=== PATIENT | male | born 1965 | race Caucasian/White ===

== ENCOUNTER 2020-02-29 23:06 | Inpatient (IN) | payer OTHER ==
--- NOTE | 2020-03-01 00:52 | PDOC.HHP ---
Hospitalist HPI - History of Present Illness abdominal pain History of Present Illness: Case of an 54y/o male with no pmhx who present to hospital due to abdominal pain. patient refers he was on his usual state of health until yesterday night when he started with intermittent abdominal pain. patient refers initially started on epigastric area but then radiated to R side. pains described as 7/10 intermittent colicky in nature worsen by movement. patient states he went to see some games todays and noted decreased apetite and the pain continued for which he went to ED for evaluation. patient there was diagnosed with cholecystitis by CT and US and was transfer to this institution for further evaluation and management. patient refer chills and nightsweats but denies any fever nausea vomiting or diarrhea. Hospitalist ROS - Review of Systems All other systems reviewed; all pertinent +/- noted in HPI/Subj Hospitalist History - Past Medical History Source: patient - Past Surgical History Other Surgical History: gastric sleeve 2y/a - Family History Family History: reports: cancer - Social History Smoking Status: Never smoker Alcohol: reports: Occassional Drugs: reports: none - Exam General Appearance: NAD, awake alert Eye: PERRL, anicteric sclera ENT: normocephalic atraumatic, no oropharyngeal lesions Neck: supple, symmetric, no JVD Heart: RRR, no murmur, no gallops Respiratory: CTAB, no wheezes, no rales Gastrointestinal: soft, non-distended, normal bowel sounds, tender to palpation Extremities: no cyanosis, no clubbing, no edema Skin: normal turgor, no lesions, no rashes Neurological: cranial nerve grossly intact, normal sensation to touch, no weakness Musculoskeletal: normal tone, normal strength, no muscle wasting Psychiatric: normal affect, normal behavior, A&O x 3, oriented to person Hospitalist Results - Labs Lab results: Lipase 2447 U/L (8-78) H 03/01/20 00:01 Hospitalist H&P A/P - Problem (1) Pancreatitis Code(s): K85.90 - ACUTE PANCREATITIS WITHOUT NECROSIS OR INFECTION, UNSP Status: Acute (2) Acute cholecystitis Code(s): K81.0 - ACUTE CHOLECYSTITIS Status: Acute - Plan Plan: 54y/o who present with pancreatitis and acute cholecystitis pancreatitis - elevated lipase in 2k - likely secondary to gallstone - aggresive ivfs - pain management - GI consulted - npo acute cholecystitis - ivfs - started on zosyn - gen surgeon consulted - ct / us consistent with cholecystitis
[2020-03-01] MEDS ORDERED: Calcium Carbonate 500 MG ChewTAB PO PRN (01:47)
[2020-03-01] MEDS ORDERED: Ondansetron PF 4 MG/2 ML Vial IVP PRN (01:47)
[2020-03-01] MEDS ORDERED: HYDROcodone/Acetaminophen 5/325 mg Tablet PO PRN (01:47)
[2020-03-01] MEDS ORDERED: Ondansetron ODT 4 MG TAB PO PRN (01:47)
[2020-03-01] MEDS ORDERED: Acetaminophen 325 MG TAB PO PRN (01:47)
[2020-03-01] MEDS ORDERED: Morphine 2 MG/ML SYRINGE SLOW IVP PRN (01:47)
[2020-03-01] MEDS ORDERED: Sodium Chloride 0.9% 1,000 ML IV SCH ×3 (02:30→08:45)
[2020-03-01] MEDS ORDERED: Piperacillin/Tazobactam 4.5 GM VIAL ONE (02:36)
[2020-03-01] MEDS ORDERED: Sodium Chloride 0.9% 100 ML ONE (02:37)
[2020-03-01] MEDS: Piperacillin/Tazobactam 4.5 GM in Sodium Chloride 0.9% 100 ML IVPB SCH ×4 (02:55→20:42)
[2020-03-01 04:37] VITALS: BMI 24.8
[2020-03-01 05:40] LABS: Band 38 % (5-11); Hemoglobin 12.5 g/dL (14.0-18.0); Lymphocytes 4 % (21-51); MDiff Complete? YES; Mean Corpuscular HGB CONC 33.4 g/dL (32.0-36.0); Mean Corpuscular Hemoglobin 28.1 pg (27.0-31.0); Mean Platelet Volume 8.4 fL (7.4-10.4); Monocytes 7 % (0-10); Neutrophil 51 % (42-75); Platelet Count 122 thou/uL (130-400); RBC Distribution Width 11.9 % (11.5-14.5); Red Blood Cell (RBC) Count 4.47 mill/uL (4.70-6.10); White Blood Cell (WBC) Count 7.6 thou/uL (4.8-10.8)
[2020-03-01 05:47] LABS: ALT (SGPT) 119 U/L (8-55); AST (SGOT) 94 U/L (5-34); Alkaline Phosphatase 102 U/L (40-110); Anion Gap 13 mmol/L (10-20); BUN (Urea Nitrogen) 17 mg/dL (8.4-25.7); Bilirubin, Total 4.3 mg/dL (0.2-1.2); Calc. Creatinine Clearance 118 mL/min (70-130); Calcium 7.8 mg/dL (7.8-10.44); Carbon Dioxide 19 mmol/L (22-29); Chloride 111 mmol/L (98-107); Estimated GFR-MDRD Greater than 90; Globulin 1.9 g/dL (2.4-3.5); Glucose 63 mg/dL (70-105); Potassium 3.5 mmol/L (3.5-5.1); Protein, Total 4.9 g/dL (6.0-8.3); Sodium 139 mmol/L (136-145)
[2020-03-01 07:37] LABS: Magnesium 1.6 mg/dL (1.6-2.6); Phosphorus 2.2 mg/dL (2.3-4.7)
[2020-03-01] MEDS ORDERED: Fentanyl 100 MCG/2 ML VIAL ONE (07:48)
[2020-03-01] MEDS: D5 1/2 NS w/20 mEq KCL 1,000 ML IV SCH ×3 (08:37→20:41)
[2020-03-01] MEDS ORDERED: Iothalamate Meglumine 60% 50 ML VIAL FS ONE (08:39)
[2020-03-01] MEDS ORDERED: Potassium Phosphate 15 MMOL in Sodium Chloride 0.9% 250 ML 250 ML IVPB SCH (08:45)
[2020-03-01] MEDS ORDERED: Ondansetron HCl/PF 4 MG/2 ML Vial IVP PRN (08:51)
[2020-03-01] MEDS ORDERED: Promethazine HCl 25 MG/ML VIAL SLOW IVP PRN (08:51)
[2020-03-01] MEDS ORDERED: Promethazine HCl 25 MG/ML VIAL IM PRN (08:51)
[2020-03-01] MEDS ORDERED: Enoxaparin Sodium 40 MG/0.4 ML SYRINGE SC SCH (09:00)
[2020-03-01] MEDS ORDERED: FLU VACC QS2020-21(6MOS UP)/PF 60 MCG/0.5 ML SYRINGE IM ONE (09:00)
[2020-03-01] MEDS ORDERED: Indomethacin 50 MG SUPP ONE (09:05)
--- NOTE | 2020-03-01 09:14 | CON ---
DATE OF CONSULTATION: 03/01/2020 CHIEF COMPLAINT: Choledocholithiasis. HISTORY OF PRESENT ILLNESS: This is a 54-year-old male who is 2 years status post gastric sleeve who has lost over 100 pounds successfully, who presents with upper abdominal pain. He is in town from [place] for the football game. Seen in emergency department, was found to have hyperbilirubinemia and gallstones, transferred to [facility] for higher level of care. Pain was 3/10 now in the upper mid abdomen. No prior known history of gallstones, jaundice, or pancreatitis. PAST MEDICAL HISTORY: He denies. PAST SURGICAL HISTORY: Gastric sleeve. MEDICATIONS: Taken daily, none. ALLERGIES: NO KNOWN DRUG ALLERGIES. SOCIAL HISTORY: Occasional alcohol. No smoking or other drugs. REVIEW OF SYSTEMS: 10-system review of systems is otherwise negative unless described above. PHYSICAL EXAMINATION: VITAL SIGNS: Blood pressure is 96/64, pulse 91, respirations 18, temperature 97.8. CHEST: Clear. HEART: Regular rate. ABDOMEN: Soft, tender in the upper abdomen. LABORATORY DATA: White blood cell count is 7, hemoglobin 12. Sodium 139, potassium 3.5, creatinine 0.84, bilirubin 4.3, lipase 2447. Ultrasound at outside institution showed gallstones. ASSESSMENT: Cholecystitis, choledocholithiasis. PLAN: ERCP today by Dr. England. Then, plan laparoscopic cholecystectomy tomorrow. Job ID: [id number]
--- NOTE | 2020-03-01 09:32 | CON ---
DATE OF CONSULTATION: 03/01/2020 REASON FOR CONSULTATION: Pancreatitis, elevated LFTs concerning for choledocholithiasis. CONSULTING PROVIDER: Hayes Markham MD HISTORY OF PRESENT ILLNESS: The patient is a 54-year-old male with past medical history of morbid obesity status post gastric sleeve surgery, presenting with complaints of right upper quadrant abdominal pain. He states that he was in his usual state of health until approximately two nights ago when he began having increased right upper quadrant abdominal discomfort that he characterized as a dull/aching type sensation, would radiate to the midepigastric region and later the generalized abdomen, was constant and reached a severity of 3/10. Over the course of the next 24 hours, this pain continued to progressively/slightly increase and was associated with increased mid back pain between his shoulder blades, diaphoresis, subjective chills, anorexia, and dizziness. This pain was worse with increased movements and having a bowel movement, but he denied any clear alleviating factors. He did have approximately one bowel movement over the next 24 hours that was semi-solid in consistency (Benedict 5) with no difficulty with defecation. With continuation of his symptoms, it prompted him to seek healthcare assistance at the [facility] ER, where he underwent routine labs and a CT scan consistent with cholecystitis. The labs also consistent with choledocholithiasis and acute pancreatitis. He was subsequently admitted to the hospital for further evaluation. Today, he states that he is feeling somewhat better, although he does continue to have the right upper quadrant/midepigastric abdominal pain. Otherwise, he denies any nausea, vomiting, fevers, hematemesis, melena, hematochezia, dysphagia, odynophagia, constipation, or recent weight loss. REVIEW OF SYSTEMS: A 10-category review of systems was obtained with all responses negative except for the pertinent positives as listed in HPI. PAST MEDICAL HISTORY: Morbid obesity. PAST SURGICAL HISTORY: Sleeve gastrectomy in 2018. FAMILY HISTORY: Denies any GI malignancies. SOCIAL HISTORY: Denies any tobacco or illicit drug use. Drinks approximately 2 to 3 beers every 1 to 2 weeks. OUTPATIENT MEDICATIONS: None. ALLERGIES: NO KNOWN DRUG ALLERGIES. PHYSICAL EXAMINATION: VITAL SIGNS: Temperature 97.8, pulse 91, blood pressure 96/64, respiratory rate 18, and saturating 99% on room air. GENERAL: The patient is lying in bed, in no acute distress. Alert and oriented x4. HEENT: Normocephalic and atraumatic. Positive scleral icterus. NECK: Supple. No JVD. CARDIOVASCULAR: Increased heart rate, but not necessarily tachycardic with regular rate and rhythm. No murmurs, gallops, or rubs. RESPIRATORY: Clear to auscultation bilaterally with no discernible wheezes or rales. ABDOMEN: Normoactive bowel sounds. Soft and nondistended. Tenderness to palpation in the midepigastric and right upper quadrant. EXTREMITIES: No cyanosis, clubbing, or edema. LABORATORY DATA: CBC with a white blood cell count of 7.6, hemoglobin 12.5, hematocrit 37.5, and platelets 122. Chemistry with a sodium of 139, potassium 3.5, chloride 111, CO2 of 19, BUN 17, creatinine 0.84, glucose 63, AST 94, ALT 119, alkaline phosphatase 102, and total bilirubin 4.3, albumin 3.0, and lipase 2447. IMAGING DATA: The patient had both a CT scan and ultrasound at an outside institution prior to transfer with records not available for review at this time. However, per review of the patient's chart, there was mention that he had a CT and ultrasound that were consistent with cholecystitis. ASSESSMENT AND PLAN: The patient is a 54-year-old male with a history of morbid obesity status post sleeve gastrectomy, presenting with right upper quadrant abdominal pain and labs consistent with cholelithiasis/cholecystitis and choledocholithiasis with gallstone pancreatitis. Choledocholithiasis/gallstone pancreatitis. The patient is presenting with acute onset of right upper quadrant abdominal pain characterized as a dull/aching type sensation radiating to the midepigastric region and later the generalized abdomen and reaching a severity of 3/10. On evaluation of the patient at an outside institution, he had both a CT scan and ultrasound that were consistent with cholecystitis. However, upon review of the patient's LFTs and lipase, they are strongly concerning for the presence of choledocholithiasis and resultant gallstone pancreatitis. At this point with his rapid weight loss over the last few years secondary to sleeve gastrectomy. This could potentially have precipitated the formation of gallstones resulting in the current clinical situation. Recommendations; 1. Would continue to trend the patient's LFTs for signs of resolving and/or worsening inflammation. 2. Would keep the patient n.p.o. for now in anticipation of endoscopic retrograde cholangiopancreatography later on this morning. 3. Would plan for endoscopic retrograde cholangiopancreatography later today for accessing the biliary system and removal of possible choledocholithiasis. 4. Would place the patient on Zosyn as part of infection prophylaxis for possible cholangitis, given his low systolic blood pressure (although the patient states that is normally low). 5. The patient will ultimately need a cholecystectomy. The timing of that procedure, I would defer to General Surgery Service. We will continue to follow. Please call with any questions. Job ID: [id number]
[2020-03-01] MEDS ORDERED: PHENYLEPHRINE-NS 100 MCG/ML 10 ML SYRINGE ONE (09:34)
[2020-03-01] MEDS ORDERED: Lidocaine 1% PF 5 ML VIAL ONE (09:34)
[2020-03-01] MEDS ORDERED: Glycopyrrolate 0.2 MG/ML 5 ML SYRINGE ONE (09:34)
[2020-03-01] MEDS ORDERED: Ondansetron PF 4 MG/2 ML Vial ONE (09:34)
[2020-03-01] MEDS ORDERED: PROPOFOL 200 MG/20 ML VIAL ONE (09:34)
[2020-03-01] MEDS ORDERED: Rocuronium Bromide 10 MG/ML (10ML VIAL) ONE (09:34)
[2020-03-01] MEDS ORDERED: Acetaminophen 325 MG TAB ONE ×2 (10:23→10:24)
--- NOTE | 2020-03-01 10:26 | OP ---
DATE OF PROCEDURE: 03/01/2020 PROCEDURE PERFORMED: Endoscopic retrograde cholangiopancreatography with sphincterotomy. INDICATIONS FOR PROCEDURE: Elevated LFTs with possible choledocholithiasis, gallstone pancreatitis. DESCRIPTION OF PROCEDURE: After the risks and benefits of the procedure were explained to the patient including risks of bleeding, infection, perforation, reactions to anesthesia, aspiration, post-ERCP pancreatitis, and/or pain, informed consent was obtained. The patient was then taken to the endoscopy suite where general anesthesia was administered followed by endotracheal tube intubation. Once the patient was adequately sedated and intubated, he was maneuvered into the prone position on the endoscopy table in preparation of the ERCP. Once in adequate position, the standard duodenoscope was introduced into the mouth with intubation of the esophagus, stomach, and the proximal small intestines with the findings listed below. The patient tolerated the procedure well with no immediate perioperative complications. Upon conclusion of the procedure, all equipment was removed from the patient and he was transferred to PACU in satisfactory condition. FINDINGS: EGD findings: Limited views were obtained from the EGD portion of this examination given the side-viewing nature of the standard duodenoscope. Of the mucosa seen; normal-appearing mucosa was seen in the proximal, mid, and distal esophagus. Surgical change consistent with a sleeve gastrectomy was noted upon entry into the stomach; however, normal-appearing mucosa was seen in the gastric cardia, fundus, incisura, antrum, and body. However, a 2- to 3-mm clean-based superficial ulceration was seen in the gastric antrum without any high-risk stigmata of active or recent bleeding. Normal-appearing mucosa was then seen in both the duodenal bulb and second portion of the duodenum. There was no evidence of erosions, mass lesions, or active/recent bleeding seen during this portion of the exam. ERCP findings: The ampulla was successfully identified within the second portion of the duodenum and was normal in appearance. A medium to large sized diverticulum was seen immediately adjacent to the ampulla, but did not impede successful cannulation. Using a 5-mm Ultratome sphincterotome, the ampulla was then successfully cannulated with a 5-mm Jagwire placed into the common bile duct and advanced into the intrahepatic biliary tree. Once the guidewire was in adequate position, the sphincterotome was advanced into the common bile duct with the cholangiogram performed at that time. Initially, the common bile duct measured approximately 3 mm in diameter with no apparent filling defect on initial examination. However, upon further fluoroscopy, a small filling defect versus an air bubble was seen moving along the length of the common bile duct, concerning for choledocholithiasis. Given this finding, the sphincterotome was then exchanged for a biliary balloon over the guidewire using exchange technique. Once the exchange was completed, a 9-mm biliary balloon was advanced into the common bile duct with successive balloon sweeps performed. With these successive balloon sweeps, no stone material or overt stones were extracted from either the common hepatic or common bile duct. After multiple negative sweeps, an occlusion cholangiogram was performed showing good filling of the intrahepatic biliary tree, good filling of the gallbladder along the cystic duct, as well as good filling of the common bile duct in the distal extrahepatic biliary tree with no evidence of filling defects or air bubbles. With removal of the guidewire and the biliary balloon, good drainage of contrast and bile was then seen coming from the common bile duct with repeat fluoroscopy showing good drainage of the intrahepatic biliary tree. All equipment was then removed from the patient. The procedure terminated. IMPRESSION: 1. Surgical change consistent with gastric sleeve gastrectomy. 2. A 2- to 3-mm superficial ulcerations seen in the gastric antrum, likely a sequelae of acute pancreatitis. 3. Common bile duct measuring 3 mm in size with sphincterotomy and balloon sweeps, yielding no stone debris or stones. 4. Good filling of the gallbladder along the cystic duct, making a Mirizzi syndrome much less likely. RECOMMENDATIONS: 1. Would continue to trend the patient's LFTs daily for signs of improvement of transaminitis. 2. Monitor for clinical evidence of post ERCP pancreatitis. 3. Given evidence of cholecystitis and probable gallstone pancreatitis, the patient will ultimately need a cholecystectomy in the near future, but would defer timing to General Surgery Service. 4. Would increase the patient's IV fluids to 200 mL/h for the next 8 hours and then decrease to 150 mL over the next 16 hours. 5. Would advance the patient's diet to clear liquid diet tomorrow unless he is being taken for cholecystectomy. 6. Pain control per primary team. We will continue to follow. Please call with any questions. Job ID: [id number]
--- NOTE | 2020-03-01 11:02 | RAD ---
ERCP 3 views: 03/01/2020 HISTORY: 54-year-old male with right upper quadrant abdominal pain COMPARISON: No prior imaging studies of any modality of any body part is currently available on synapse PACS. FINDINGS: Catheterization and wire placement ascending common bile duct, common hepatic duct, with wire tip tavo p superiorly in a branch of right hepatic duct. Contrast material in nondilated common duct and what appears to be nondilated gallbladder fundus. Evaluation for filling defects is limited because the contrast material is faint. No convincing evidence of filling defect identified. Mild irregularity and mild ectasia of left hepatic duct, but not of its branches. Final images demonstrate small amount of contrast material in the duodenum adjacent to ampulla. IMPRESSION: No biliary obstruction.
[2020-03-01 12:57] LABS: INR-International Normal Ratio 1.5; Prothrombin Time 18.7 sec (12.0-14.7)
[2020-03-01] MEDS ORDERED: Dextrose 50% Abboject 50 ML SYRINGE IVP PRN (13:45)
[2020-03-01] MEDS ORDERED: Dextrose 5% in Water 1,000 ML IV PRN (13:45)
[2020-03-01 15:40] LABS: #Eosinphils 0.1 thou/uL (0.0-0.7); #Lymphocytes 0.5 thou/uL (1.20-3.40); #Monocytes 0.5 thou/uL (0.11-0.59); #Neutrophils 6.2 thou/uL (1.40-6.50); %Eosinophils 0.8 % (0.0-10.0); %Lymphocytes 6.4 % (21.0-51.0); %Monocytes 6.9 % (0.0-10.0); %Neutrophils 85.9 % (42.0-75.0); Hemoglobin 12.4 g/dL (14.0-18.0); Mean Corpuscular HGB CONC 32.9 g/dL (32.0-36.0); Mean Platelet Volume 8.2 fL (7.4-10.4); Platelet Count 94 thou/uL (130-400); RBC Distribution Width 12.1 % (11.5-14.5); Red Blood Cell (RBC) Count 4.44 mill/uL (4.70-6.10); White Blood Cell (WBC) Count 7.2 thou/uL (4.8-10.8)
[2020-03-01 15:56] LABS: ALT (SGPT) 96 U/L (8-55); AST (SGOT) 69 U/L (5-34); Alkaline Phosphatase 105 U/L (40-110); Anion Gap 10 mmol/L (10-20); BUN (Urea Nitrogen) 16 mg/dL (8.4-25.7); Bilirubin, Total 3.9 mg/dL (0.2-1.2); Calc. Creatinine Clearance 113 mL/min (70-130); Calcium 7.8 mg/dL (7.8-10.44); Carbon Dioxide 20 mmol/L (22-29); Chloride 113 mmol/L (98-107); Estimated GFR-MDRD 90; Globulin 1.9 g/dL (2.4-3.5); Glucose 80 mg/dL (70-105); Potassium 3.7 mmol/L (3.5-5.1); Protein, Total 4.9 g/dL (6.0-8.3); Sodium 139 mmol/L (136-145)
[2020-03-01] MEDS ORDERED: Morphine 2 MG/ML VIAL SLOW IVP PRN (20:50)
[2020-03-02] MEDS: Piperacillin/Tazobactam 4.5 GM in Sodium Chloride 0.9% 100 ML IVPB SCH ×2 (04:00→09:11)
[2020-03-02] MEDS: D5 1/2 NS w/20 mEq KCL 1,000 ML IV SCH ×2 (04:13→09:23)
[2020-03-02 05:23] LABS: INR-International Normal Ratio 1.2; Prothrombin Time 15.8 sec (12.0-14.7)
[2020-03-02 05:24] LABS: #Eosinphils 0.1 thou/uL (0.0-0.7); #Lymphocytes 0.5 thou/uL (1.20-3.40); #Monocytes 0.3 thou/uL (0.11-0.59); #Neutrophils 3.5 thou/uL (1.40-6.50); %Eosinophils 2.8 % (0.0-10.0); %Lymphocytes 11.4 % (21.0-51.0); %Monocytes 6.5 % (0.0-10.0); %Neutrophils 79.3 % (42.0-75.0); Mean Corpuscular HGB CONC 33.3 g/dL (32.0-36.0); Mean Corpuscular Hemoglobin 28.4 pg (27.0-31.0); Mean Corpuscular Volume 85.3 fL (78.0-98.0); Mean Platelet Volume 8.5 fL (7.4-10.4); PTT 34.9 sec (22.9-36.1); Platelet Count 93 thou/uL (130-400); RBC Distribution Width 12.1 % (11.5-14.5); Red Blood Cell (RBC) Count 4.23 mill/uL (4.70-6.10); White Blood Cell (WBC) Count 4.4 thou/uL (4.8-10.8)
[2020-03-02 05:44] LABS: Anion Gap 10 mmol/L (10-20); BUN (Urea Nitrogen) 13 mg/dL (8.4-25.7); Calc. Creatinine Clearance 126 mL/min (70-130); Carbon Dioxide 21 mmol/L (22-29); Chloride 110 mmol/L (98-107); Estimated GFR-MDRD Greater than 90; Glucose 81 mg/dL (70-105); Lipase 880 U/L (8-78); Magnesium 1.8 mg/dL (1.6-2.6); Phosphorus 2.3 mg/dL (2.3-4.7); Potassium 3.9 mmol/L (3.5-5.1); Sodium 137 mmol/L (136-145)
[2020-03-02 05:45] LABS: ALT (SGPT) 79 U/L (8-55); AST (SGOT) 50 U/L (5-34); Albumin 2.8 g/dL (3.5-5.0); Alkaline Phosphatase 99 U/L (40-110); Bilirubin, Direct 2.7 mg/dL (0.1-0.3); Bilirubin, Total 3.2 mg/dL (0.2-1.2); Protein, Total 4.6 g/dL (6.0-8.3)
[2020-03-02 07:41] LABS: SARS-CoV-2 NAA Rapid Test Not Detected (NotDetected)
[2020-03-02] MEDS ORDERED: Fentanyl 100 MCG/2 ML VIAL ONE (08:40)
[2020-03-02] MEDS ORDERED: Saccharomyces boulardii 250 MG CAP PO SCH (09:00)
[2020-03-02] MEDS ORDERED: Bupivacaine 0.25% HCL 30 ML VIAL ONE (09:12)
[2020-03-02] MEDS ORDERED: Lidocaine 1% w/Epinephrine 1:100K 20 ML VIAL ONE (09:12)
[2020-03-02] MEDS ORDERED: Bupivacaine/Epinephrine 0.25% 30 ML VIAL ONE (09:27)
[2020-03-02] MEDS ORDERED: Promethazine HCl 25 MG/ML VIAL IM PRN ×2 (11:02→12:16)
[2020-03-02] MEDS ORDERED: Promethazine HCl 25 MG/ML VIAL SLOW IVP PRN (11:02)
[2020-03-02] MEDS ORDERED: Ondansetron HCl/PF 4 MG/2 ML Vial IVP PRN (11:02)
[2020-03-02] MEDS ORDERED: HYDROmorphone 2 MG/ML VIAL SLOW IVP PRN (11:02)
[2020-03-02] MEDS ORDERED: PACU-Morphine 4MG/ML VIAL SLOW IVP PRN (11:02)
[2020-03-02] MEDS ORDERED: Ondansetron PF 4 MG/2 ML Vial ONE ×2 (11:24→12:06)
[2020-03-02] MEDS ORDERED: Rocuronium Bromide 10 MG/ML (10ML VIAL) ONE (12:06)
[2020-03-02] MEDS ORDERED: Dexamethasone 20 MG/5 ML VIAL ONE (12:06)
[2020-03-02] MEDS ORDERED: Glycopyrrolate 0.2 MG/ML 5 ML SYRINGE ONE (12:06)
[2020-03-02] MEDS ORDERED: Ketorolac Tromethamine 30 MG/ML VIAL ONE (12:06)
[2020-03-02] MEDS ORDERED: Lidocaine 1% PF 5 ML VIAL ONE (12:06)
[2020-03-02] MEDS ORDERED: EPHEDRINE 25 MG/5 ML SYRINGE ONE (12:06)
[2020-03-02] MEDS ORDERED: PROPOFOL 200 MG/20 ML VIAL ONE (12:06)
[2020-03-02] MEDS ORDERED: Mag-Al 1200 mg/1200 mg/30 ML UDCUP PO PRN (12:16)
[2020-03-02] MEDS ORDERED: Dextrose 5% in Water 1,000 ML IV PRN (12:16)
[2020-03-02] MEDS ORDERED: hydrALAZINE 20 MG/ML VIAL SLOW IVP PRN (12:16)
[2020-03-02] MEDS ORDERED: traMADol HCl 50 MG TAB PO PRN ×2 (12:16)
[2020-03-02] MEDS ORDERED: Morphine 2 MG/ML VIAL SLOW IVP PRN (12:16)
[2020-03-02] MEDS ORDERED: Dextrose 50% Abboject 50 ML SYRINGE SLOW IVP PRN (12:16)
[2020-03-02] MEDS ORDERED: Sodium Chloride 0.9% 1,000 ML IV SCH (12:16)
[2020-03-02] MEDS ORDERED: Morphine 4 MG/ML VIAL SLOW IVP PRN (12:16)
[2020-03-02] MEDS ORDERED: Calcium Carbonate 500 MG ChewTAB PO PRN (12:16)
[2020-03-02] MEDS ORDERED: Ondansetron PF 4 MG/2 ML Vial IVP PRN (12:16)
--- NOTE | 2020-03-02 12:51 | PRG ---
DATE OF SERVICE: 03/02/2020 REASON FOR CONSULTATION: Pancreatitis, elevated LFTs. SUBJECTIVE: Since the ERCP yesterday, the patient states that he had improvement in his abdominal pain with the severity reaching now 1/10. While he has not had a bowel movement since the procedure yesterday, he has had urinated quite a bit with IV fluid resuscitation. Otherwise, he denies any nausea, vomiting, fevers, chills, hematemesis, melena, or hematochezia. Currently, he is on the schedule for laparoscopic cholecystectomy today. OBJECTIVE: VITAL SIGNS: Temperature 98.4, pulse 64, blood pressure 99/64, respiratory rate 18, saturating 92% on room air. GENERAL: The patient was lying in bed, in no acute distress. Alert and oriented x4. CARDIOVASCULAR: Regular rate and rhythm. RESPIRATORY: Clear to auscultation bilaterally. ABDOMEN: Normoactive bowel sounds. Soft, nondistended. Mild tenderness to palpation in the right upper quadrant. EXTREMITIES: No cyanosis, clubbing, or edema. LABORATORY DATA: CBC with a white blood cell count of 4.4, hemoglobin 12, hematocrit 36, and platelets 93. INR 1.2. Chemistry with a sodium of 137, potassium 3.9, chloride 110, CO2 of 21, BUN 13, creatinine 0.79, glucose 81, AST 50, ALT 79, alkaline phosphatase 99, and total bilirubin 3.2. Lipase 880. IMAGING DATA: ERCP performed on March 01, 2020, yielded a common bile duct of approximately 3 mm in diameter with sphincterotomy and successive balloon sweeps. There was no foreign object or stone within the biliary tree. ASSESSMENT AND PLAN: The patient is a 54-year-old male with past medical history of morbid obesity, status post sleeve gastrectomy, presenting with right upper quadrant abdominal pain with labs concerning for choledocholithiasis, but with now negative EGD in addition to pancreatitis. 1. Pancreatitis: The patient initially presented with acute onset of right upper quadrant abdominal pain with lipase significantly elevated consistent with acute uncomplicated pancreatitis. With the elevation in his liver enzymes, there was some concern about gallstone pancreatitis, but ERCP performed on March 01, 2020, did not yield any stones within the common hepatic or common bile duct with a normal-appearing extrahepatic biliary tree. At this time, the origin of his pancreatitis is somewhat uncertain and could have been due to a passed stone within the biliary tree, but also could be due to increased recent alcohol use as an outpatient. RECOMMENDATIONS: 1. We would continue to trend the patient's LFTs for signs of resolving hepatic inflammation. 2. Agree with laparoscopic cholecystectomy today to minimize any further recurrences of possible choledocholithiasis. 3. Antibiotics and pain control per primary team. 4. We will continue the patient at 150 mL/h in terms of IV fluid, but we would decrease it appropriately when advancing the patient's diet. 5. After the laparoscopic cholecystectomy, if there are no complications, I would restart the patient on a clear liquid diet and advance as tolerated given his pancreatitis. We will continue to follow. Please call with any questions. Job ID: [id number]
[2020-03-02 15:03] VITALS: BP 117/77; TEMP 97
--- NOTE | 2020-03-02 15:33 | OP ---
DATE OF PROCEDURE: 03/02/2020 PREOPERATIVE DIAGNOSIS: Acute cholecystitis. POSTOPERATIVE DIAGNOSIS: Acute cholecystitis. PROCEDURE: Laparoscopic cholecystectomy. ANESTHESIA: General. ESTIMATED BLOOD LOSS: Minimal. COMPLICATIONS: None. SPECIMEN: Gallbladder. FINDINGS: Acute cholecystitis. PROCEDURE IN DETAIL: The patient was taken to the operating room and laid supine on the operating room table. After general anesthetic was obtained, the abdomen was prepped and draped in a sterile fashion. A curved incision was made below the umbilicus. Cautery was used to dissect down to the umbilical fascia. Umbilical fascia was incised and held up using a Stanislav. The abdominal cavity was entered using a Nery clamp. Holding stitch of Vicryl was placed on each side of the fascia. Campos trocar was placed. High-flow pneumoperitoneum was obtained. An upper midline 5 mm port and 2 right upper quadrant 5 mm ports were placed under direct camera visualization. The gallbladder was retracted from the gallbladder fossa. The peritoneum of the gallbladder was opened anteriorly and posteriorly. The critical view triangle was seen showing only the cystic duct and cystic artery branching from medial to lateral. There were no other branching structures. Two clips were placed proximally on the cystic duct and one laterally. It was cut using laparoscopic scissors. The cystic artery was taken in the same way. Electrocautery was then used to dissect the gallbladder out of the gallbladder fossa. The gallbladder was placed in an Endo catch bag and brought out through the Campos. There was no bleeding or bile in the liver bed. The cystic duct stump and cystic artery stump were intact, without evidence of extravasation or bleeding. All port sites were infiltrated using local anesthesia. All ports were removed under camera visualization. Pneumoperitoneum was let down. The Vicryl was used to close the fascial defect below the umbilicus. All incisions were irrigated and closed using 4-0 Monocryl and Dermabond. The patient was en route to Recovery in stable condition. All instrument counts, needle counts and lap counts were correct. Job ID: [id number]
--- NOTE | 2020-03-02 20:18 | DIS ---
DATE OF ADMISSION: 03/01/2020 DATE OF DISCHARGE: 03/02/2020 DISCHARGE DISPOSITION: Home. FOLLOWUP: With Gastroenterology and General Surgery as scheduled. ALLERGIES: NO KNOWN DRUG ALLERGIES. DISCHARGE MEDICATIONS: 1. Zofran. 2. Tramadol as needed. 3. Protonix 40 mg daily The patient was seen and examined on the day of discharge. Denies any new complaints. No nausea, vomiting, or abdominal pain reported. He is tolerating regular consistency. SIGNIFICANT LABS: Lipase on admission was 2447. Repeat lipase today was 880. Total bilirubin on admission was 4.3, this morning was 3.2. CBC on admission showed WBC of 7.6 with hemoglobin 12.5, hematocrit 37.5 with platelet of 122. Phosphorus 2.2. Magnesium 1.6. CRP was 10.1. COVID-19 testing was negative. BRIEF HOSPITAL COURSE: The patient is a 54-year-old male who presented to the emergency room on February 29, 2020, around 11:00 p.m. with right upper quadrant abdominal pain of 1 day duration. He was transferred from other facility. His CT scan and ultrasound of the abdomen were consistent with acute cholecystitis. His blood pressure on admission was 78/51 with temperature 98.4, respirations of 16, pulse rate of 98. He received IV fluid bolus in the emergency room and was admitted to the hospital for suspected gallstone pancreatitis. He was evaluated by General Surgery as well as Gastroenterology. He underwent ERCP with sphincterotomy. The ERCP showed common bile duct measuring 3 mm in size without any stone or stone debris. The EGD showed 2 to 3 mm superficial ulceration in the gastric antrum, likely due to acute pancreatitis. Earlier today, he underwent laparoscopic cholecystectomy. He is tolerating low-fat diet and has been cleared by General Surgery and GI for discharge. Please note that he overall improved earlier than expected. A prescription for PPI has also been sent to the pharmacy. FINAL DIAGNOSES: 1. Severe sepsis secondary to acute pancreatitis and cholecystitis-present on admission. 2. Chronic anemia suspected due to nutritional deficiency. 3. Thrombocytopenia probably due to sepsis. 4. Coagulopathy secondary to sepsis. 5. Hypoglycemia secondary to sepsis with poor oral intake. 6. Hypokalemia. 7. Hypomagnesemia. 8. Hypophosphatemia. 9. Abnormal LFTs secondary to above. 10. History of gastric sleeve gastrectomy. 11. History of superficial ulceration in the gastric antrum, likely due to acute pancreatitis. 12. The patient understands the above plan of care. Job ID: [id number] [facility]
[2020-03-02] MEDS ORDERED: Famotidine 20 MG TAB PO SCH (21:00)
[2020-03-02] MEDS ORDERED: Famotidine/PF 20 mg/2ml Vial SLOW IVP SCH (21:00)
== END 2020-03-02 19:40 | disposition home or self-care (01) | DRG 853 ==
LOC: ERS 23:06 → SJJU 03-01 02:21
PROVIDERS: ADMIT Internal Medicine; ATTEND Internal Medicine
PROC: 0FT44ZZ Resection of Gallbladder, Percutaneous Endoscopic Approach (ICD-10-PCS; principal; 2020-03-01)
PROC: 0F798ZZ Dilation of Common Bile Duct, Via Natural or Artificial Opening Endoscopic (ICD-10-PCS; 2020-03-01)
PROC: 3E02340 Introduction of Influenza Vaccine into Muscle, Percutaneous Approach (ICD-10-PCS; 2020-03-01)
DX: A41.9 Sepsis, unspecified organism (principal); K85.10 Biliary acute pancreatitis without necrosis or infection; K81.0 Acute cholecystitis; D68.9 Coagulation defect, unspecified; Z20.828 Contact with and (suspected) exposure to other viral communicable diseases; Z23 Encounter for immunization; R65.20 Severe sepsis without septic shock; D69.6 Thrombocytopenia, unspecified; E16.2 Hypoglycemia, unspecified; E87.6 Hypokalemia; E83.42 Hypomagnesemia; E83.39 Other disorders of phosphorus metabolism; Z98.84 Bariatric surgery status
CPT/HCPCS: 36415; 36416; 74330; 80048; 80053; 80076; 82533; 83605; 83690; 83735; 84100; 85007; 85025; 85027; 85610; 85730; 86140; 87635; 88304; 90471; 90662; 99284; G0008; J1100; J1610; J1885; J2270; J2405; J2543; J2704; J3010; J3480; J3490; J7050; S0020; U0002; U0003